=== PATIENT | male | born 1985 | race Caucasian/White ===

== ENCOUNTER 2021-03-15 04:25 | Emergency (ER) | payer BC ==
[~2021-03-15] VITALS: Ht 167.6 cm; Wt 73.0 kg
[2021-03-15 04:34] VITALS: BP 131/81
[2021-03-15] MEDS ORDERED: TETANUS, DIPHTHERIA, PERTUSSIS VAC/PF 0.5ML (>7YR OLD) IM ONE (04:45)
[2021-03-15] MEDS ORDERED: CIPR-263 MT (05:05)
[2021-03-15] MEDS ORDERED: TOPUD MT (05:05)
== END 2021-03-15 05:17 | disposition home or self-care (01) ==
LOC: ER 04:25
DX: S91.331A Puncture wound without foreign body, right foot, initial encounter (principal); W22.8XXA Striking against or struck by other objects, initial encounter; Y93.89 Activity, other specified; Y92.89 Other specified places as the place of occurrence of the external cause; Y99.8 Other external cause status
CPT/HCPCS: 90471; 90715; 99283